=== PATIENT | female | born 1980 | race Caucasian/White ===

== ENCOUNTER 2019-12-08 05:43 | Day surgery (SDC) | payer OTHER ==
[~2019-12-08 05:43] MED LIST: LACTATED RINGERS 1000 ML IV PRN; LIDOCAINE 0.5% INJ-PF (5 MG/ML) 50 ML SDV SUBCUT PRN
[2019-12-08 06:27] LABS: APPEARANCE,URINE SLIGHTLY-CLOUDY; BILIRUBIN,URINE NEGATIVE (NEGATIVE); COLOR,URINE YELLOW; GLUCOSE, URINE NEGATIVE (NEGATIVE); KETONES,URINE NEGATIVE (NEGATIVE); LEUKOCYTE ESTERASE,URINE NEGATIVE (NEGATIVE); NITRITE,URINE NEGATIVE (NEGATIVE); PROTEIN,URINE NEGATIVE (NEGATIVE); URINE SPECIFIC GRAVITY 1.024; UROBILINOGEN,URINE NEGATIVE mg/dL (<2.0)
[2019-12-08] MEDS ORDERED: MIDAZOLAM 2 MG/2 ML INJ ONE (06:43)
[2019-12-08] MEDS ORDERED: PROPOFOL INJ 200 MG/20 ML VIAL IV ONE (06:43)
[2019-12-08] MEDS ORDERED: FENTANYL CITRATE INJ/PF 100 MCG/2 ML AMPUL ONE (06:43)
[2019-12-08] MEDS ORDERED: ONDANSETRON HCL INJ/PF 4 MG/2 ML SDV ONE (06:43)
[2019-12-08 06:47] LABS: ABSOLUTE EOSINOPHILS # (AUTO) 0.2 10^3/uL (0.0-0.6); ABSOLUTE LYMPHOCYTES (AUTO) 1.7 10^3/uL (0.5-4.7); ABSOLUTE MONOCYTES (AUTO) 0.4 10^3/uL (0.1-1.4); ABSOLUTE NEUT (AUTO) 2.3 10^3/uL (1.7-8.2); BASOPHILS % (AUTO) 0.8 % (0-2); EOSINOPHILS % (AUTO) 3.3 % (0-6); HEMATOCRIT 37.8 % (36.0-47.0); HEMOGLOBIN 12.7 g/dL (12.0-15.5); LYMPHOCYTES % (AUTO) 36.1 % (13-45); MEAN CORPUSCULAR HEMOGLOBIN 30.5 pg (27.0-33.4); MEAN CORPUSCULAR HGB CONC 33.6 g/dL (32.0-36.0); MEAN CORPUSCULAR VOLUME 91 fl (80-97); MONOCYTES % (AUTO) 8.9 % (3-13); PLATELET COUNT 221 10^3/uL (150-450); RED BLOOD COUNT 4.17 10^6/uL (3.72-5.28); RED CELL DISTRIBUTION WIDTH 13.4 % (11.5-14.0); SEGMENTED NEUTROPHILS % (AUTO) 50.9 % (42-78); TOTAL CELLS COUNTED % (AUTO) 100 %; WHITE BLOOD COUNT 4.6 10^3/uL (4.0-10.5)
[2019-12-08] MEDS ORDERED: SCOPOLAMINE HYDROBROMIDE 1.5 MG PATCH.TD72 ONE (07:03)
[2019-12-08] MEDS ORDERED: PROMETHAZINE HCL INJ 25 MG/1 ML VIAL IV PRN (07:06)
[2019-12-08] MEDS ORDERED: MEPERIDINE HCL/PF INJ 25 MG/1 ML DISP.SYRIN IV PRN (07:06)
[2019-12-08] MEDS ORDERED: DIPHENHYDRAMINE HCL 50 MG/ML VIAL IV PRN (07:06)
[2019-12-08] MEDS ORDERED: FENTANYL CITRATE INJ/PF 100 MCG/2 ML AMPUL IV PRN ×3 (07:06)
[2019-12-08] MEDS ORDERED: ONDANSETRON HCL INJ/PF 4 MG/2 ML SDV IV PRN (07:06)
[2019-12-08] MEDS ORDERED: LIDOCAINE 1% INJ-PF (10 MG/ML) 30 ML SDV ONE (07:21)
--- NOTE | 2019-12-08 08:32 | Operative Report ---
Operative Report DATE OF SURGERY: 12/08/19 PREOPERATIVE DIAGNOSIS: Menorrhagia POSTOPERATIVE DIAGNOSIS: Menorrhagia OPERATION: Dilation and curettage, hysteroscopy with Novasure endometrial ablation SURGEON: MARYA PABON ANESTHESIA: GA TISSUE REMOVED OR ALTERED: Endometrial curettings COMPLICATIONS: None ESTIMATED BLOOD LOSS: 10cc INTRAOPERATIVE FINDINGS: Normal appearing cervix, Uterus sounded to 9 cm with cervical length of 3.5 cm . Fluffy endometrial cavity noted. Both ostia identified. Good yany noted throughout cavity after ablation was complete PROCEDURE: IV fluids: Crystalloid IV fluids per anesthesia record Disposition: To recovery room in stable condition Description of the procedure: The patient was taken to the operating room where monitored anesthesia was administered and found to be adequate she was then placed in the dorsol lithotomy position and prepped and draped in the usual sterile fashion. A timeout was taken. Bladder emptied of 300cc clear yellow urine. A bivalve speculum was placed in the vagina and the cervix was brought into good view. A single-tooth tenaculum was used to grasp the anterior lip of the cervix and the cervix was serially dilated. The cervical length was assessed as well as the uterine cavity length. The uterus sounded to appro ximately 9 cm and the cervix was assessed at 3.5 cm length giving us a cavity length of 5.5 cm. The hysteroscope was then inserted and using a saline distention medium the uterine cavity was inspected multiple pictures were obtained. A fluffy endometrium was noted and both ostia were identified. At this point the hysteroscope was removed and curettage was done in a circumferential manner until a gritty texture was noted. The tissue obtained will be sent to the lab as endometrial curettings. Hysteroscope re-inserted and cavity cleared of any debris. Hysteroscope removed. The NovaSure device was then advanced through the cervix into the uterine cavity. The device had been previously set for a cavity length of 5.5 cm and once inside the cavity the arms were deployed. Cavity assessment was done and width was determined to be 4.0 cm. Using these settings the NovaSure endometrial ablation was initiated. Ablation lasted 48 seconds. Once complete, the device was allowed to cool, the arms retracted and then removed. The hysteroscope was then inserted and with a saline distention medium the cavity was inspected once more good yany was noted in the endometrial cavity pictures were obtained the procedure was then terminated all instrument to remove the patient's vagina. The patient tolerated the procedure well all instrument sponge and needle counts were correct x2 for the procedure she will proceed to recovery room in stable condition
--- NOTE | 2019-12-08 08:40 | Discharge Summary ---
Discharge Summary (SDC) - Discharge Final Diagnosis: menorrhagia Date of Surgery: 12/08/19 Condition: Stable Treatment or Instructions: Nothing in vagina for 2 weeks. Resume regular diet Activity as tolerated Hydration and ambulation encouraged Prescriptions: Ibuprofen [Ibu] 800 mg PO Q8 10 Days #30 tablet Hydrocodone/Acetaminophen [[place] 5-325 mg Tablet] 1 tab PO Q6HP PRN 3 Days #8 tablet PRN Reason: For Pain Scale 4-5 Discharge Diet: Regular Respiratory Treatments at Home: Deep Breathing/Coughing Discharge Activity: Activity As Tolerated, Pelvic Rest, Slowly Increase Activity, No tub bath, Walk Frequently Home Care Assistance: None Needed Report the Following to Your Physician Immediately: Shortness of Breath, Vomiting, Increase in Pain, Fever over 101 Degrees, Drainage-Foul Smelling, Increased Vaginal Bleed, Wheezing, IV Site Infection Signs
[2019-12-08] MEDS ORDERED: KETOROLAC TROMETHAMINE INJ/PF 30 MG/1 ML SDV ONE (08:46)
[2019-12-08] MEDS ORDERED: HYDROCODONE/ACETAMINOPHEN 5-325 MG TABLET ONE (09:11)
[2019-12-08 10:17] VITALS: BP 120/78
== END 2019-12-08 10:20 | disposition home or self-care (01) ==
LOC: OROUT 05:43
PROVIDERS: ATTEND Obstetrics & Gynecology
DX: N94.6 Dysmenorrhea, unspecified (principal); N92.0 Excessive and frequent menstruation with regular cycle; Z88.0 Allergy status to penicillin; Z03.818 Encounter for observation for suspected exposure to other biological agents ruled out
CPT/HCPCS: 58563; 36415; 85025; 87635; 81025; 81001; 88305 ×2; 00952; J2250; J3010; J1885; J2405; J2704; C9803; 952; J3490